=== PATIENT | female | born 1995 | race Caucasian/White ===

== ENCOUNTER → 2018-06-26 | Outpatient (CLI) | payer OTHER ==
--- NOTE | 2018-06-26 14:02 | Diagnostic Imaging Report ---
Exam: Left foot 3 views History: Left foot pain Comparison: None. Findings: Late subacute healing fracture of the proximal phalanx of the small toe. No other fracture. Joint spaces normally aligned. Impression: Late subacute healing fracture of the proximal phalanx of the small toe. Signed by: Dr. Wilman Dominguez M.D. on 06/26/2018 1:59 PM
== END ==
LOC: RAD 12:43
PROVIDERS: ATTEND Internal Medicine
DX: M79.672 Pain in left foot (principal)